=== PATIENT | male | born 1955 | race Two or more races ===

== ENCOUNTER 2017-06-20 23:48 | Inpatient (IN) | payer OTHER ==
[~2017-06-20] VITALS: Ht 170.2 cm; Wt 74.8 kg
[2017-06-22] MEDS ORDERED: ENALAPRIL MALEAT5 MG PO (15:09)
[2017-06-22] MEDS ORDERED: CLOPIDOGREL BIS75 MG PO (15:09)
== END 2017-06-22 16:18 | disposition home or self-care (01) | DRG 65 ==
LOC: ER 23:48 → EDSEX 23:50 → SEC-K 06-21 10:11 → MEDI 06-21 16:56 → SEC-K 06-21 17:22 → MEDJ 06-22 00:47
PROC: B345ZZZ Ultrasonography of Bilateral Common Carotid Arteries (ICD-10-PCS; principal; 2017-06-21)
PROC: B348ZZZ Ultrasonography of Bilateral Internal Carotid Arteries (ICD-10-PCS; 2017-06-21)
PROC: B246ZZZ Ultrasonography of Right and Left Heart (ICD-10-PCS; 2017-06-21)
PROC: B33RZZZ Magnetic Resonance Imaging (MRI) of Intracranial Arteries (ICD-10-PCS; 2017-06-21)
PROC: B030YZZ Magnetic Resonance Imaging (MRI) of Brain using Other Contrast (ICD-10-PCS; 2017-06-21)
DX: I63.541 Cerebral infarction due to unspecified occlusion or stenosis of right cerebellar artery (principal); G81.91 Hemiplegia, unspecified affecting right dominant side; R47.81 Slurred speech; I10 Essential (primary) hypertension
CPT/HCPCS: 70551; 70552